=== PATIENT | female | born 1980 | race Caucasian/White ===

== ENCOUNTER 2025-01-03 22:05 | Emergency (ER) | payer OTHER ==
[~2025-01-03] VITALS: Ht 165.1 cm; Wt 92.1 kg
[~2025-01-03 22:05] MED LIST: HYDROCODONE BIT1 T11 PO; MOTRIN800 MG PO; NAPROSYN500 MG PO; NKHM; ROBAXIN-750750 MG PO; VICODIN 5/500 505 MG PO; VITAMIN B122500 MCG SL
[2025-01-03] MEDS ORDERED: Acetaminophen/Hydrocodone HP 10/325 PO ONE (22:50)
[2025-01-03] MEDS ORDERED: PREDNISONE50 MG PO (23:45)
== END 2025-01-03 23:34 | disposition home or self-care (01) ==
LOC: ED 22:05
DX: S39.012A Strain of muscle, fascia and tendon of lower back, initial encounter (principal); Z79.899 Other long term (current) drug therapy; Z98.51 Tubal ligation status; X58.XXXA Exposure to other specified factors, initial encounter; Y93.89 Activity, other specified; Y92.89 Other specified places as the place of occurrence of the external cause; Y99.8 Other external cause status

== ENCOUNTER → 2025-01-19 | Outpatient (CLI) | payer OTHER ==
[~2025-01-19] MED LIST changes: +PREDNISONE50 MG PO
[2025-01-19 10:02] LABS: MEAN CELL VOLUME 94.5 fl (81.0-99.0); MEAN CORPUSCULAR HGB 30.4 pg (27.0-31.0); MEAN PLATELET VOLUME 10.3 fl (9.6-12.3); NUCLEATED RED BLOOD CELL 0.0 % (0.0-0.0); NUCLEATED RED BLOOD CELL 0.0 10*3/uL (0.0-0.0); PLATELET COUNT AUTOMATED 226.0 10*3/uL (130-400); RED CELL DISTRI WIDTH 13.2 % (0-14.5)
[2025-01-19 10:32] LABS: BUN 20 mg/dl (9-23); CPK 43 U/L (34-171); FREE T4 1.53 ng/dl (0.89-1.76); LDL CHOLESTEROL 113 mg/dL (9-159); SGPT/ALT 23 U/L (5-49); VITAMIN D, 25-HYDROXY 20.2 ng/mL (30-100)
[2025-01-22 02:07] LABS: TESTOS, FREE 0.6 pg/mL (0.0-4.2)
== END | disposition home or self-care (01) ==
LOC: LAB 09:31
PROVIDERS: ATTEND Family Medicine
DX: M54.50 Low back pain, unspecified (principal); M54.6 Pain in thoracic spine; E78.00 Pure hypercholesterolemia, unspecified; E55.9 Vitamin D deficiency, unspecified; R91.1 Solitary pulmonary nodule; Z00.00 Encounter for general adult medical examination without abnormal findings; I68.0 Cerebral amyloid angiopathy